=== PATIENT | female | born 1955 | race Caucasian/White ===

== ENCOUNTER 2018-07-24 22:03 | Emergency (ER) | payer MEDICARE, MEDICAID ==
[~2018-07-24] VITALS: Ht 165.1 cm; Wt 51.0 kg
[2018-07-24 23:12] LABS: BASOPHILS # (AUTO) 0.2 X10'3 (0-0.2); BASOPHILS % (AUTO) 1.6 % (0-1); EOSINOPHILS # (AUTO) 0.1 X10'3 (0-0.9); EOSINOPHILS % (AUTO) 0.5 % (0-6); HEMATOCRIT 34.3 % (35.0-45.0); HEMOGLOBIN 11.9 g/dl (12.0-16.0); LYMPHOCYTES # (AUTO) 2.1 X10'3 (1.1-4.8); LYMPHOCYTES % (AUTO) 13.9 % (21-51); MEAN CORPUSCULAR HEMOGLOBIN 32.7 PG (27.0-31.0); MEAN CORPUSCULAR HGB CONC 34.8 % (33.0-36.5); MEAN PLATELET VOLUME 7.7 FL (7.4-10.4); MONOCYTES # (AUTO) 1.4 X10'3 (0-0.9); MONOCYTES % (AUTO) 9.1 % (2-12); NEUTROPHILS # (AUTO) 11.4 X10'3 (1.8-7.7); NEUTROPHILS % (AUTO) 74.9 % (42-75); PLATELET COUNT 409 X10'3 (140-440); RED BLOOD COUNT 3.65 X10'6 (4.20-5.60); RED CELL DISTRIBUTION WIDTH 12.4 % (11.5-14.5); WHITE BLOOD COUNT 15.2 X10'3 (4.5-11.0)
[2018-07-24 23:16] LABS: ALANINE AMINOTRANSFERASE 40 U/L (12-78); ALKALINE PHOSPHATASE 119 IU/L (46-116); ANION GAP 11 (8-16); ASPARTATE AMINO TRANSFERASE 27 U/L (10-37); BILIRUBIN,TOTAL 0.5 MG/DL (0.1-1.0); BLOOD UREA NITROGEN 11 MG/DL (7-18); CALCIUM 9.2 MG/DL (8.5-10.1); CHLORIDE 101 MMOL/L (99-107); CREATININE 0.92 MG/DL (0.40-0.90); GLUCOSE 132 MG/DL (70-104); POTASSIUM 3.1 MMOL/L (3.5-5.1); SODIUM 141 MMOL/L (135-145); TOTAL CARBON DIOXIDE 28.6 MMOL/L (24-32); TOTAL PROTEIN 8.2 G/DL (6.4-8.2); eGFR 62 ML/MIN
[2018-07-24 23:25] LABS: ETHANOL < 0.010 GM/DL (0.0-0.010)
[2018-07-24] MEDS ORDERED: potassium Cl 20 mEq SR tablet PO STA (23:29)
[2018-07-25 01:10] LABS: CLARITY,URINE CLEAR (Clear); COLOR,URINE YELLOW (Yellow); GLUCOSE, URINE NEGATIVE (Neg); KETONES,URINE NEGATIVE (Neg); LEUKOCYTE ESTERASE ,URINE NEGATIVE (Neg); NITRITES, URINE NEGATIVE (Neg); OCCULT BLOOD,URINE NEGATIVE (Neg); PH,URINE 5.5 (4.8-8.0); PROTEIN,URINE NEGATIVE (Neg); URINE HCG NEGATIVE (NEG); UROBILINOGEN,URINE 0.2 E.U/dL (0.2-1.0)
[2018-07-25 01:23] LABS: URINE AMPHETAMINE SCREEN NEGATIVE (Neg); URINE BARBITUATE SCREEN NEGATIVE (Neg); URINE BENZODIAZEPINES SCREEN NEGATIVE (Neg); URINE CANNABINOID SCREEN POSITIVE (Neg); URINE COCAINE SCREEN NEGATIVE (Neg); URINE METHADONE SCREEN NEGATIVE (Neg); URINE OPIATE SCREEN NEGATIVE (Neg); URINE PHENCYCLIDINE SCREEN NEGATIVE (Neg)
[2018-07-25 01:28] LABS: UA COLLECTION TYPE CLN CATCH MIDSTREAM
[2018-07-25] MEDS: LORazepam 0.5 MG tablet PO PRN (08:28)
[2018-07-25] MEDS ORDERED: QUET-1 PO (14:47)
[2018-07-25] MEDS ORDERED: TIZA4CAP PO (14:47)
[2018-07-25] MEDS ORDERED: DULO-31 PO (14:47)
[2018-07-25] MEDS ORDERED: CITA-311 PO (14:47)
[2018-07-25] MEDS ORDERED: QUEtiapine 25mg tablet PO STA (14:58)
[2018-07-25] MEDS: quetiapine 100mg tablet PO SCH ×2 (20:44→21:18)
[2018-07-26] MEDS: duloxetine 30mg CAPSULE.DR PO SCH ×2 (08:00→08:29)
[2018-07-26] MEDS: quetiapine 100mg tablet PO SCH ×4 (08:00→22:21)
[2018-07-26] MEDS ORDERED: sertraline 50mg tablet PO SCH (08:00)
[2018-07-26] MEDS: CITALOpram 10mg tablet PO SCH ×2 (08:00→08:29)
[2018-07-26] MEDS ORDERED: LORazepam 2 mg/ml vial IM ONE (10:40)
[2018-07-26] MEDS: LORazepam 0.5 MG tablet PO PRN (20:37)
[2018-07-27] MEDS: tizanidine 4mg tablet PO PRN (03:24)
[2018-07-27] MEDS: duloxetine 30mg CAPSULE.DR PO SCH (07:09)
[2018-07-27] MEDS: CITALOpram 10mg tablet PO SCH (07:11)
[2018-07-27] MEDS: quetiapine 100mg tablet PO SCH ×2 (08:00→21:00)
[2018-07-27 11:22] LABS: BASOPHILS # (AUTO) 0.1 X10'3 (0-0.2); BASOPHILS % (AUTO) 1.3 % (0-1); EOSINOPHILS # (AUTO) 0.1 X10'3 (0-0.9); EOSINOPHILS % (AUTO) 0.9 % (0-6); HEMATOCRIT 36.2 % (35.0-45.0); HEMOGLOBIN 12.2 g/dl (12.0-16.0); LYMPHOCYTES # (AUTO) 1.6 X10'3 (1.1-4.8); LYMPHOCYTES % (AUTO) 16.5 % (21-51); MEAN CORPUSCULAR HGB CONC 33.8 % (33.0-36.5); MEAN CORPUSCULAR VOLUME 94.7 FL (78-98); MEAN PLATELET VOLUME 7.7 FL (7.4-10.4); MONOCYTES % (AUTO) 9.9 % (2-12); NEUTROPHILS % (AUTO) 71.4 % (42-75); PLATELET COUNT 413 X10'3 (140-440); RED BLOOD COUNT 3.82 X10'6 (4.20-5.60); RED CELL DISTRIBUTION WIDTH 12.6 % (11.5-14.5); WHITE BLOOD COUNT 9.8 X10'3 (4.5-11.0)
[2018-07-27 11:27] LABS: ALANINE AMINOTRANSFERASE 31 U/L (12-78); ALBUMIN 3.4 G/DL (3.4-5.0); ALBUMIN/GLOBULIN RATIO 0.8 (1.1-1.5); ALKALINE PHOSPHATASE 97 IU/L (46-116); ANION GAP 8 (8-16); ASPARTATE AMINO TRANSFERASE 24 U/L (10-37); BILIRUBIN,TOTAL 0.3 MG/DL (0.1-1.0); BLOOD UREA NITROGEN 18 MG/DL (7-18); BUN/CREATININE RATIO 22.5 (6.6-38.0); CALCIUM 9.3 MG/DL (8.5-10.1); CHLORIDE 101 MMOL/L (99-107); GLUCOSE 119 MG/DL (70-104); POTASSIUM 3.6 MMOL/L (3.5-5.1); SODIUM 139 MMOL/L (135-145); TOTAL CARBON DIOXIDE 29.6 MMOL/L (24-32); TOTAL PROTEIN 7.9 G/DL (6.4-8.2); eGFR 73 ML/MIN
[2018-07-27] MEDS: LORazepam 0.5 MG tablet PO PRN ×2 (18:50→23:08)
[2018-07-27] MEDS ORDERED: LORazepam 2 mg/ml vial IM STA (23:29)
[2018-07-28] MEDS ORDERED: LORazepam 2 mg/ml vial IM ONE (00:25)
[2018-07-28] MEDS: CITALOpram 10mg tablet PO SCH (06:51)
[2018-07-28] MEDS: duloxetine 30mg CAPSULE.DR PO SCH (06:51)
[2018-07-28] MEDS: LORazepam 0.5 MG tablet PO PRN ×3 (06:51→22:15)
[2018-07-28] MEDS: quetiapine 100mg tablet PO SCH ×4 (08:00→22:15)
[2018-07-28] MEDS: haloperidol 5mg tablet PO PRN ×2 (12:43→22:15)
[2018-07-29] MEDS: quetiapine 100mg tablet PO SCH ×3 (08:00→19:59)
[2018-07-29] MEDS: haloperidol 5mg tablet PO PRN ×2 (08:21→19:58)
[2018-07-29] MEDS: tizanidine 4mg tablet PO PRN ×3 (08:21→19:37)
[2018-07-29] MEDS: duloxetine 30mg CAPSULE.DR PO SCH (08:22)
[2018-07-29] MEDS: CITALOpram 10mg tablet PO SCH (08:22)
[2018-07-29] MEDS: LORazepam 0.5 MG tablet PO PRN ×3 (08:24→19:38)
[2018-07-30] MEDS: LORazepam 0.5 MG tablet PO PRN ×2 (05:39→16:51)
[2018-07-30] MEDS: tizanidine 4mg tablet PO PRN (05:39)
[2018-07-30] MEDS: quetiapine 100mg tablet PO SCH (08:00)
[2018-07-30] MEDS: duloxetine 30mg CAPSULE.DR PO SCH (08:12)
[2018-07-30] MEDS: CITALOpram 10mg tablet PO SCH (08:13)
[2018-07-30] MEDS ORDERED: docusate sod 100mg capsule PO ONE (08:55)
[2018-07-30] MEDS ORDERED: QUEtiapine 25mg tablet PO PRN (15:15)
[2018-07-30] MEDS ORDERED: acetaminophen 325mg tablet PO PRN (15:15)
[2018-07-30 17:50] VITALS: BP 145/92
[2018-07-30] MEDS ORDERED: docusate sod 100mg capsule PO SCH (20:00)
== END 2018-07-30 17:42 ==
LOC: ER 22:08
DX: F23 Brief psychotic disorder (principal); E87.6 Hypokalemia; F15.10 Other stimulant abuse, uncomplicated; Z88.5 Allergy status to narcotic agent
CPT/HCPCS: 36415; 80053; 80305; 80320; 81003; 81025; 84443; 85025; 96372; 99285

== ENCOUNTER 2018-09-27 14:54 | Emergency (ER) | payer MEDICARE, OTHER ==
[~2018-09-27] VITALS: Ht 165.1 cm; Wt 59.5 kg
[~2018-09-27 14:54] MED LIST: AMIT10TA6 PO; AMLO5TAB16 PO; CELE-85 PO; CITA-311 PO; DULO-31 PO; QUET-1 PO; TIZA4CAP PO; TRAM50TA2 PO
[2018-09-27 15:10] VITALS: BP 160/76
== END 2018-09-27 16:49 | disposition home or self-care (01) ==
LOC: ER 14:54
DX: F10.129 Alcohol abuse with intoxication, unspecified (principal); F20.9 Schizophrenia, unspecified; F15.10 Other stimulant abuse, uncomplicated; Z79.899 Other long term (current) drug therapy; Z88.5 Allergy status to narcotic agent
CPT/HCPCS: 99283

== ENCOUNTER 2018-11-06 08:52 | Emergency (ER) | payer MEDICARE ==
[~2018-11-06] VITALS: Ht 165.1 cm; Wt 56.8 kg
--- NOTE | 2018-11-06 09:55 | NUR ---
Pt brought back to ER overflow from main ER accompanied by security and tech, escorted to bed 25.
[2018-11-06 10:10] LABS: BASOPHILS # (AUTO) 0.1 X10'3 (0-0.2); BASOPHILS % (AUTO) 1.2 % (0-1); EOSINOPHILS # (AUTO) 0.3 X10'3 (0-0.9); EOSINOPHILS % (AUTO) 2.7 % (0-6); HEMATOCRIT 34.2 % (35.0-45.0); HEMOGLOBIN 11.5 g/dl (12.0-16.0); LYMPHOCYTES # (AUTO) 1.9 X10'3 (1.1-4.8); LYMPHOCYTES % (AUTO) 18.2 % (21-51); MEAN CORPUSCULAR HGB CONC 33.6 % (33.0-36.5); MEAN CORPUSCULAR VOLUME 92.3 FL (78-98); MEAN PLATELET VOLUME 8.1 FL (7.4-10.4); MONOCYTES # (AUTO) 1.1 X10'3 (0-0.9); MONOCYTES % (AUTO) 10.5 % (2-12); NEUTROPHILS # (AUTO) 7.1 X10'3 (1.8-7.7); NEUTROPHILS % (AUTO) 67.4 % (42-75); PLATELET COUNT 337 X10'3 (140-440); RED CELL DISTRIBUTION WIDTH 15.1 % (11.5-14.5); WHITE BLOOD COUNT 10.6 X10'3 (4.5-11.0)
[2018-11-06 10:13] LABS: ALANINE AMINOTRANSFERASE 39 U/L (12-78); ALBUMIN 3.9 G/DL (3.4-5.0); ALBUMIN/GLOBULIN RATIO 0.8 (1.1-1.5); ALKALINE PHOSPHATASE 93 IU/L (46-116); ANION GAP 10 (8-16); ASPARTATE AMINO TRANSFERASE 23 U/L (10-37); BILIRUBIN,TOTAL 0.6 MG/DL (0.1-1.0); BLOOD UREA NITROGEN 18 MG/DL (7-18); BUN/CREATININE RATIO 27.3 (6.6-38.0); CALCIUM 9.1 MG/DL (8.5-10.1); CHLORIDE 103 MMOL/L (99-107); CREATININE 0.66 MG/DL (0.40-0.90); ETHANOL < 0.010 GM/DL (0.0-0.010); GLUCOSE 112 MG/DL (70-104); POTASSIUM 3.7 MMOL/L (3.5-5.1); SODIUM 142 MMOL/L (135-145); TOTAL CARBON DIOXIDE 29.1 MMOL/L (24-32); TOTAL PROTEIN 8.6 G/DL (6.4-8.2); eGFR > 90 ML/MIN
--- NOTE | 2018-11-06 10:17 | NUR ---
UA collected and sent, not a clean catch as pt was not cooperative with using wipes.
[2018-11-06 10:39] LABS: CLARITY,URINE SLIGHTLY CLOUDY (Clear); COLOR,URINE YELLOW (Yellow); GLUCOSE, URINE NEGATIVE (Neg); KETONES,URINE NEGATIVE (Neg); LEUKOCYTE ESTERASE ,URINE NEGATIVE (Neg); NITRITES, URINE NEGATIVE (Neg); OCCULT BLOOD,URINE NEGATIVE (Neg); PROTEIN,URINE NEGATIVE (Neg); URINE HCG NEGATIVE (NEG); UROBILINOGEN,URINE 0.2 E.U/dL (0.2-1.0)
--- NOTE | 2018-11-06 10:39 | NUR ---
Pt scores high on the elopement risk assessment, has an elopement band on her left wrist.
--- NOTE | 2018-11-06 10:40 | NUR ---
Pt admits to depression, rates depression as a 10/10, denies SI/HI/AH/VH.
[2018-11-06 10:44] LABS: UA COLLECTION TYPE NON-SPECIFIED
--- NOTE | 2018-11-06 10:45 | NUR ---
Attempted to call pt's daughter Tenisha with her permission, message left, asking Tenisha to return call.
[2018-11-06 10:48] LABS: BACTERIA,URINE 1+ /HPF (Neg); MUCUS STRANDS NONE SEEN /LPF (Neg); RBC,URINE NONE SEEN /HPF (0-2); SQUAMOUS EPITHELIAL CELL,UR MANY /LPF (FEW); WBC,URINE 0-4 /HPF (0-4)
[2018-11-06 10:50] LABS: URINE AMPHETAMINE SCREEN NEGATIVE (Neg); URINE BARBITUATE SCREEN NEGATIVE (Neg); URINE BENZODIAZEPINES SCREEN NEGATIVE (Neg); URINE CANNABINOID SCREEN POSITIVE (Neg); URINE COCAINE SCREEN NEGATIVE (Neg); URINE METHADONE SCREEN NEGATIVE (Neg); URINE OPIATE SCREEN NEGATIVE (Neg); URINE PHENCYCLIDINE SCREEN NEGATIVE (Neg)
--- NOTE | 2018-11-06 11:02 | NUR ---
Called telepsych to arrange consult.
--- NOTE | 2018-11-06 11:35 | NUR ---
Telepsych attempting to assess pt, pt not answering the majority of the questions.
--- NOTE | 2018-11-06 11:35 | NUR ---
Telepsych doctor called for a report.
--- NOTE | 2018-11-06 11:51 | NUR ---
Pt evaluated by telepsych doc, he was unable to get much info from the pt, pt is a poor historian, recommended keeping her on a 5150 for GD.
[2018-11-06] MEDS ORDERED: NO HOME MEDS EXT (11:53)
[2018-11-06 12:08] LABS: ACETAMINOPHEN < 2.0 UG/ML (10-30)
--- NOTE | 2018-11-06 13:24 | NUR ---
Lavon suarez in [facility] - 11/06/18 at 1341 by [email or web address] Pt sitting on the edge of her bed eating lunch, appears to be responding to internal stimuli at times.
--- NOTE | 2018-11-06 13:24 | NUR ---
Pt sitting on the edge of her bed eating lunch, appears to be responding to internal stimuli at times.
--- NOTE | 2018-11-06 13:24 | NUR ---
Lavon suarez in ED - 11/06/18 at 1344 by [email or web address] Pt sitting onthe edge of her bed eating lunch, appears to be responding to internal stimuli at times.
--- NOTE | 2018-11-06 13:25 | NUR ---
Attempted to contact daughter again, no answer.
--- NOTE | 2018-11-06 13:25 | NUR ---
Lavon suarez in [facility] - 11/06/18 at 1342 by [email or web address] Attempted to contact daughter again still no answer.
--- NOTE | 2018-11-06 13:30 | NUR ---
Daughter Tenisha returned call, states that she does not have her own place so mom can't stay with her, states mom released from [facility] in [place], believes she stayed at the [facility] for a couple of days the went to her dad's (pt's ex-husbands) house. Daughter states that mom has been in and out of acute [facility] hospitals; has been at [facility] in [place] twice, has been at [facility], was living in [place] for 3-4 years but lost her housing there due to psychotic behavior. Daughter stated that the pt gets a little better in the acute care facilities, gets released, does not continue her meds, and ends up on a hold again somewhere. Daughter states that each time, the pt seems to get a little bit worse. Daughter is supportive and would like to be called for changes or if mom gets placed, her phone number is [phone].
--- NOTE | 2018-11-06 13:53 | NUR ---
Daughter Tenisha also conveyed that the pt has never hurt herself or anyone else but becomes paranoid and talks to people not there.
--- NOTE | 2018-11-06 13:55 | NUR ---
MD Dr Schumacher in evaluating the pt.
--- NOTE | 2018-11-06 14:03 | NUR ---
Pt is loudly talking/yelling to herself/people unseen.
--- NOTE | 2018-11-06 14:49 | NUR ---
Pt continues to exhibit some anxiety/agitation, responding to internal stimuli, talking/yelling to herself, spoke with MD Dr Meza who ordered Geodon 20 mg PO daily routine, start now and prn Ativan 1 mg PO Q 6Hrs prn.
--- NOTE | 2018-11-06 14:49 | NUR ---
PACKET FAXED TO [facility] OFFICE AT THIS TIME..
[2018-11-06] MEDS ORDERED: LORazepam 1 MG tablet PO PRN (14:50)
[2018-11-06] MEDS: LORazepam 0.5 MG tablet PO PRN (15:02)
[2018-11-06] MEDS: ziprasidone 20mg capsule PO SCH (15:02)
--- NOTE | 2018-11-06 15:04 | NUR ---
Pt took routine Geodon 20 mg and prn Ativan 1 mg PO.
[2018-11-06] MEDS: nicotine 21mg patch - 24 hr TD SCH (15:22)
--- NOTE | 2018-11-06 15:29 | NUR ---
Pt stating she wants a cigarette, when asked how many cigarettes she smokes per day she replied, "as many as I can get." Put in order for Nicotine patch 21 mg daily, applied to right shoulder.
--- NOTE | 2018-11-06 17:12 | NUR ---
Pt requesting an order for Seroquel to help her sleep tonight, per daughter pt has not slept much the past 2 nights. Obtained V.O. from Dr Meza for Seroquel 200 mg PO Q HS for sleep.
--- NOTE | 2018-11-06 18:30 | NUR ---
Report rec'd, [facility]. Eating dinner currently. Family at bedside.
--- NOTE | 2018-11-06 18:30 | NUR ---
Tamica Steven here, meeting with [facility].
--- NOTE | 2018-11-06 18:52 | NUR ---
Pt's daughter, Tenisha, would like [facility] to call her the next time she is availble. Cell phone; [phone]
--- NOTE | 2018-11-06 18:58 | NUR ---
Patient moved to ER OF Bed 21
--- NOTE | 2018-11-06 19:17 | NUR ---
Resting in bed, eyes closed. Appearing to sleep at this time. No new concerns noted. Will continue to monitor for changes.
[2018-11-06] MEDS: quetiapine 100mg tablet PO SCH (20:21)
--- NOTE | 2018-11-06 20:22 | NUR ---
Medications administered without complications. Requesting breakfast tray. Reoriented to time.
--- NOTE | 2018-11-06 21:07 | NUR ---
Patient resting in bed with eyes closed, resp are even and unlabored, appearing to sleep. Will continue to monitor.
--- NOTE | 2018-11-06 21:59 | NUR ---
Resting in bed, continues to appear to sleep comfortably. Will monitor.
--- NOTE | 2018-11-06 22:56 | NUR ---
Laying in bed, eyes closed, resp are even and unlabored, appears to sleep. Will continue to monitor.
--- NOTE | 2018-11-06 23:56 | NUR ---
Laying in bed, eyes closed, resp are even and unlabored, appears to sleep. Will continue to monitor.
--- NOTE | 2018-11-07 01:27 | NUR ---
Resting in bed, appearing to sleep with even and unlabored respirations. No new concerns or issues noted, will continue to monitor.
--- NOTE | 2018-11-07 02:43 | NUR ---
Awake, up to BRP, patient is grossly disoriented, was unable to locate restroom, or her bed adfterwards.
--- NOTE | 2018-11-07 03:08 | NUR ---
Requested a snack, crackers given.
--- NOTE | 2018-11-07 04:22 | NUR ---
Laying in bed awake, denies needs, will monitor.
--- NOTE | 2018-11-07 05:01 | NUR ---
Vitals taken, is asking for more food, endorsed time of breakfast. Patient responded by repeating, in rapid jay, "I'm hungry, give me food, I'm hungry, give me food". Patient was redirected.
--- NOTE | 2018-11-07 07:19 | NUR ---
pt sitting on side of bed, coloring book given to pt. no distress noted. stated "I wants to go home".
[2018-11-07] MEDS: ziprasidone 20mg capsule PO SCH (07:54)
[2018-11-07] MEDS: nicotine 21mg patch - 24 hr TD SCH (07:55)
--- NOTE | 2018-11-07 08:32 | NUR ---
pt ambulated to bathroom independently. no distress noted.
--- NOTE | 2018-11-07 10:32 | NUR ---
increased restlessness in bed and yelling out noticed. stated she wants to leave now!!
[2018-11-07] MEDS: LORazepam 0.5 MG tablet PO PRN ×3 (13:30→20:14)
--- NOTE | 2018-11-07 13:32 | NUR ---
PT C/O FEELING ANXIETY. AMB TO BATHROOM AND BACK TO BED. ADMIN MEDICATION ORDERED.
--- NOTE | 2018-11-07 14:38 | NUR ---
pt laying in bed talking to self. no distress noted.
[2018-11-07] MEDS ORDERED: LORazepam 1 MG tablet PO ONE (16:30)
--- NOTE | 2018-11-07 16:31 | NUR ---
pt came to nursing station stated she is feeling very anxious and asked for antianxiety med. dr thurston notified. ordered additional 1mg ativan. order placed. will continue to monitor patient.
[2018-11-07] MEDS ORDERED: LORazepam 0.5 MG tablet PO ONE (16:35)
--- NOTE | 2018-11-07 17:24 | NUR ---
sitting up in bed, no distress noted.
--- NOTE | 2018-11-07 18:09 | NUR ---
Received report from REBECCA Arevalo. Patient is awake and alert on room air, visitor at bedside. Will continue to monitor.
[2018-11-07] MEDS: quetiapine 100mg tablet PO SCH (20:13)
--- NOTE | 2018-11-07 20:45 | NUR ---
Patient standing up at bedside, voicing out she wants to go home. She is asking for her clothes and belongings. Reoriented patient that she is in the hospital, and that its bedtime. Patient went back to bed.
--- NOTE | 2018-11-07 21:59 | NUR ---
Patient resting comfortably, 18 even and unlabored respirations.
--- NOTE | 2018-11-07 23:44 | NUR ---
Patient laying on right side, in no apparent distress. Resting comfortably.
--- NOTE | 2018-11-08 02:10 | NUR ---
Patient laying on right side with eyes closed, in no apparent distress.
--- NOTE | 2018-11-08 03:56 | NUR ---
Patient laying supine with eyes closed, in no apparent distress.
--- NOTE | 2018-11-08 04:53 | NUR ---
PCT at bedside obtaining vital signs. Patient is awake and alert, in no apparent distress.
[2018-11-08] MEDS: ziprasidone 20mg capsule PO SCH (06:45)
[2018-11-08] MEDS: LORazepam 0.5 MG tablet PO PRN ×2 (06:46→14:48)
[2018-11-08] MEDS: acetaminophen 325mg tablet PO PRN (07:24)
[2018-11-08] MEDS: nicotine 21mg patch - 24 hr TD SCH (08:00)
--- NOTE | 2018-11-08 08:00 | NUR ---
Patient sitting at bedside eating breakfast
[2018-11-08] MEDS ORDERED: divalproex sodium 250mg tablet PO ONE (10:30)
--- NOTE | 2018-11-08 17:40 | NUR ---
Patient agitated and restless throughout the day. Making a request to staff 6-10 times an hour. Poor concentration and craves staff attention. Limits presented to patient. Allowed to make one request to staff per hour. Patient accepted limits poorly. Tested limits throughout the day. Observed to be talking in a nonsensical manner. Spewing gibberish about the staff and other patients. Poor reality testing though able to state the month and year. Difficult to determine if patient is exhibiting early signs of dementia or delusional disorder. Eats well on her own. Takes herself to the bathroom without difficulty. Denies suicidal ideation or intent.
--- NOTE | 2018-11-08 18:10 | NUR ---
Report received from REBECCA Traore .Pt. was awake and waiting fro her dinner.
[2018-11-08] MEDS: divalproex sodium 500mg tablet.DR PO SCH (18:34)
--- NOTE | 2018-11-08 19:00 | NUR ---
Pt. finished her dinner ,and resting in bed.
--- NOTE | 2018-11-08 19:36 | NUR ---
PT. daughter visiting arrived @ 193.
[2018-11-08] MEDS: quetiapine 100mg tablet PO SCH (19:41)
--- NOTE | 2018-11-08 20:00 | NUR ---
Pt. had a visitor it was her daughter.She took med. and used the bathroom.
--- NOTE | 2018-11-08 22:00 | NUR ---
pt. is sleepinf comfortable.
--- NOTE | 2018-11-08 23:00 | NUR ---
Pt. is sleeping.
--- NOTE | 2018-11-09 01:03 | NUR ---
Pt. sleeping in he back comfortable.
--- NOTE | 2018-11-09 04:36 | NUR ---
Pt. went to the bathroom.
[2018-11-09] MEDS: LORazepam 0.5 MG tablet PO PRN ×3 (04:51→17:18)
--- NOTE | 2018-11-09 04:54 | NUR ---
Pt. ia awake ,wandering around.Went to the bathroom.
--- NOTE | 2018-11-09 05:32 | NUR ---
pt. khushi barney asking for orange juice.Wanted to go home ,asking for her clothes.
--- NOTE | 2018-11-09 06:29 | NUR ---
Report given to REBECCA Yap
[2018-11-09] MEDS: divalproex sodium 500mg tablet.DR PO SCH ×2 (08:10→17:18)
[2018-11-09] MEDS: nicotine 21mg patch - 24 hr TD SCH (08:10)
[2018-11-09] MEDS: ziprasidone 20mg capsule PO SCH (08:10)
--- NOTE | 2018-11-09 08:32 | NUR ---
pt pacing around the unit back and forth she took her morning meds and nicotine patch she ate some breakfast and has asked for her clothes numberous times attempting to set limits with the pt and how often she uses the restroom she wants to go q15min
[2018-11-09] MEDS: acetaminophen 325mg tablet PO PRN (10:50)
--- NOTE | 2018-11-09 11:33 | NUR ---
pt pacing back and forth and then complaints of head ache and anxiety per pt request . She is going to the bathroom quite often
--- NOTE | 2018-11-09 12:30 | NUR ---
PT EATING LUNCH AND BEING COOPERATIVE FOR THE MOMENT, PT IS STILL USING THE BATHROOM VERY OFTEN
--- NOTE | 2018-11-09 13:47 | NUR ---
Lavon suarez in [facility] - 11/09/18 at 1401 by JEFFREY social professionals and heladio mgr arranging transport to [facility].
--- NOTE | 2018-11-09 14:30 | NUR ---
pt crying at times and trying to go to the bathroom q15 min still trying to set limits for pt to try and go q30min not q15, pt not pleased with this idea
--- NOTE | 2018-11-09 16:24 | NUR ---
pt pacing back and forth and getting in and out of bed q5 min
--- NOTE | 2018-11-09 16:30 | NUR ---
prn ativan given per pt request
--- NOTE | 2018-11-09 17:50 | NUR ---
pts daughter came left about 10 min ago pt agitated once she left but was calm while daughter present
--- NOTE | 2018-11-09 18:11 | NUR ---
report given to REBECCA Donovan. Pt eating dinner VS stable
--- NOTE | 2018-11-09 18:19 | NUR ---
assumed care of pt, pt is sitting on the side of her bed eating dinner.
--- NOTE | 2018-11-09 18:27 | NUR ---
Rcvd report from Sania FERNANDEZ, assumed care of pt. Pt is sitting on the side of her bed eating dinner.
[2018-11-09] MEDS: quetiapine 100mg tablet PO SCH (20:06)
--- NOTE | 2018-11-09 20:07 | NUR ---
pt spent evening visiting w/family member, pt took meds and is sitting in bed.
--- NOTE | 2018-11-09 21:18 | NUR ---
pt up using restroom
--- NOTE | 2018-11-10 00:03 | NUR ---
PT LAYING ON HER RIGHT SIDE SLEEPING RR 14 EVEN AND UNLABORED NO S/S DISTRESS
--- NOTE | 2018-11-10 02:12 | NUR ---
PT LAYING IN BED AWAKE, DRINKING WATER, SITTING QUIETLY.
[2018-11-10] MEDS: LORazepam 0.5 MG tablet PO PRN ×2 (03:17→10:06)
--- NOTE | 2018-11-10 03:18 | NUR ---
PT AWAKE PACING THE FLOOR ANXIOUS. PRN GIVEN W/GOOD EFFECT.
--- NOTE | 2018-11-10 04:36 | NUR ---
PT IS RESTLESS, NOT SLEEPING WELL TONIGHT. SHE IS QUIETLY LAYING IN BED. C/O COUGHING, SHE HAS AN INTERMITTENT COUGH
--- NOTE | 2018-11-10 06:30 | NUR ---
Patient awake upon change of shift observation. Restless and walking about the unit. Making frequent trips to the bathroom. Making rambling, nonsensical statements when spoken to by staff. "I'm here but I'm not here. I have a house. But someone else lives there."
[2018-11-10] MEDS: divalproex sodium 500mg tablet.DR PO SCH (07:31)
[2018-11-10] MEDS: ziprasidone 20mg capsule PO SCH (07:31)
[2018-11-10] MEDS: nicotine 21mg patch - 24 hr TD SCH (07:34)
--- NOTE | 2018-11-10 08:52 | NUR ---
Jacquelin from [facility] called for a nurse to nurse report. Report given. Stated she would accept patient to their Geriatric/Psyche Unit. Jacquelin will call [facility] and notify.
--- NOTE | 2018-11-10 09:06 | NUR ---
Call received from Della at [facility] to state patient had been accepted at [facility]. water truck driver will be here in 40 minutes.
--- NOTE | 2018-11-10 10:14 | NUR ---
Transfer Note: Cvir Tech Ger from [facility] here to brick picker patient for transport to [facility], with all her personal possessions. Patient escorted to the transportaion vehicle by Security staff Karel and PCT Glory Nicholas.
[2018-11-10 10:20] VITALS: BP 135/76
== END 2018-11-10 10:14 | disposition short-term general hospital (02) ==
LOC: ER 08:52
DX: R45.1 Restlessness and agitation (principal); R41.0 Disorientation, unspecified; F29 Unspecified psychosis not due to a substance or known physiological condition; F15.90 Other stimulant use, unspecified, uncomplicated; Z88.5 Allergy status to narcotic agent
CPT/HCPCS: 36415; 80053; 80305; 80320; 80329; 81001; 81025; 84443; 85025; 99285